=== PATIENT | male | born 2000 | race Caucasian/White ===

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

== ENCOUNTER 2019-02-08 11:39 | Emergency (ER) | payer MEDICAID ==
[~2019-02-08] VITALS: Ht 172.7 cm; Wt 85.9 kg
[2019-02-08 12:07] VITALS: Ht 172.7 cm; Wt 85.9 kg
[2019-02-08 14:13] VITALS: BP 112/66
== END 2019-02-08 14:13 | disposition home or self-care (01) ==
LOC: ED 11:39
DX: S50.861A Insect bite (nonvenomous) of right forearm, initial encounter (principal); S00.86XA Insect bite (nonvenomous) of other part of head, initial encounter; S40.261A Insect bite (nonvenomous) of right shoulder, initial encounter; Z98.890 Other specified postprocedural states; W57.XXXA Bitten or stung by nonvenomous insect and other nonvenomous arthropods, initial encounter; Y93.89 Activity, other specified; Y92.89 Other specified places as the place of occurrence of the external cause; Y99.8 Other external cause status
CPT/HCPCS: J1200; J7512